=== PATIENT | male | born 2000 | race Caucasian/White ===

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

== ENCOUNTER → 2021-02-10 14:27 | Outpatient (BNVA) | payer MEDICAID, SELFPAY | PROVIDERS: Family Provider Family Medicine; PCP Family Medicine; Visit Provider Counselor Mental Health | DX: F43.12 Post-traumatic stress disorder, chronic (principal); F90.2 Attention-deficit hyperactivity disorder, combined type | CPT/HCPCS: 90834 ==

== ENCOUNTER → 2021-02-12 08:25 | Outpatient (BNVA) | payer MEDICAID, SELFPAY | PROVIDERS: Family Provider Family Medicine; PCP Family Medicine; Visit Provider Nurse Practitioner | DX: F43.12 Post-traumatic stress disorder, chronic (principal); R41.83 Borderline intellectual functioning; F90.2 Attention-deficit hyperactivity disorder, combined type | CPT/HCPCS: 99214 ==

== ENCOUNTER → 2021-02-24 14:43 | Outpatient (BNVA) | payer MEDICAID, SELFPAY | PROVIDERS: Family Provider Family Medicine; PCP Family Medicine; Visit Provider Counselor Mental Health | DX: F43.12 Post-traumatic stress disorder, chronic (principal); F90.2 Attention-deficit hyperactivity disorder, combined type; R41.83 Borderline intellectual functioning | CPT/HCPCS: 90834 ==

== ENCOUNTER → 2021-03-11 10:58 | Outpatient (BNVA) | payer MEDICAID, SELFPAY | PROVIDERS: Family Provider Family Medicine; PCP Family Medicine; Visit Provider Counselor Mental Health | DX: F43.12 Post-traumatic stress disorder, chronic (principal); F90.2 Attention-deficit hyperactivity disorder, combined type; R41.83 Borderline intellectual functioning | CPT/HCPCS: 90834 ==

== ENCOUNTER → 2021-03-25 10:53 | Outpatient (BNVA) | payer MEDICAID, SELFPAY | PROVIDERS: Family Provider Family Medicine; PCP Family Medicine; Visit Provider Counselor Mental Health | DX: F43.12 Post-traumatic stress disorder, chronic (principal); F90.2 Attention-deficit hyperactivity disorder, combined type; R41.83 Borderline intellectual functioning | CPT/HCPCS: 90834 ==

== ENCOUNTER → 2021-04-10 14:05 | Outpatient (BNVA) | payer MEDICAID, SELFPAY | PROVIDERS: Family Provider Family Medicine; PCP Family Medicine; Visit Provider Counselor Mental Health | DX: F43.12 Post-traumatic stress disorder, chronic (principal); F90.2 Attention-deficit hyperactivity disorder, combined type; R41.83 Borderline intellectual functioning | CPT/HCPCS: 90834 ==

== ENCOUNTER → 2021-04-25 10:45 | Outpatient (BNVA) | payer MEDICAID, SELFPAY | PROVIDERS: Family Provider Family Medicine; PCP Family Medicine; Visit Provider Counselor Mental Health | DX: F43.12 Post-traumatic stress disorder, chronic (principal); F90.2 Attention-deficit hyperactivity disorder, combined type; R41.83 Borderline intellectual functioning | CPT/HCPCS: 90834 ==

== ENCOUNTER → 2021-05-07 13:58 | Outpatient (BNVA) | payer MEDICAID, SELFPAY | PROVIDERS: Family Provider Family Medicine; PCP Family Medicine; Visit Provider Nurse Practitioner | DX: F43.12 Post-traumatic stress disorder, chronic (principal); R41.83 Borderline intellectual functioning; F90.2 Attention-deficit hyperactivity disorder, combined type | CPT/HCPCS: 99214 ==

== ENCOUNTER → 2021-05-09 10:46 | Outpatient (BNVA) | payer MEDICAID, SELFPAY | PROVIDERS: Family Provider Family Medicine; PCP Family Medicine; Visit Provider Counselor Mental Health | DX: F43.12 Post-traumatic stress disorder, chronic (principal); F90.2 Attention-deficit hyperactivity disorder, combined type; R41.83 Borderline intellectual functioning | CPT/HCPCS: 90834 ==

== ENCOUNTER → 2021-05-23 10:49 | Outpatient (BNVA) | payer OTHER, SELFPAY | PROVIDERS: Family Provider Family Medicine; PCP Family Medicine; Visit Provider Counselor Mental Health | DX: F43.12 Post-traumatic stress disorder, chronic (principal); F90.2 Attention-deficit hyperactivity disorder, combined type; R41.83 Borderline intellectual functioning | CPT/HCPCS: 90834 ==

== ENCOUNTER → 2021-06-06 10:43 | Outpatient (BNVA) | payer OTHER, SELFPAY | PROVIDERS: Family Provider Family Medicine; PCP Family Medicine; Visit Provider Counselor Mental Health | DX: F43.12 Post-traumatic stress disorder, chronic (principal); F90.2 Attention-deficit hyperactivity disorder, combined type; R41.83 Borderline intellectual functioning | CPT/HCPCS: 90834 ==

== ENCOUNTER → 2021-07-01 07:44 | Outpatient (BNVA) | payer OTHER, SELFPAY | PROVIDERS: Family Provider Family Medicine; PCP Family Medicine; Visit Provider Counselor Mental Health | DX: F43.12 Post-traumatic stress disorder, chronic (principal); F90.2 Attention-deficit hyperactivity disorder, combined type; R41.83 Borderline intellectual functioning | CPT/HCPCS: 90834 ==

== ENCOUNTER → 2021-07-02 07:28 | Outpatient (BNVA) | payer OTHER, SELFPAY | PROVIDERS: Family Provider Family Medicine; PCP Family Medicine; Visit Provider Nurse Practitioner | DX: F43.12 Post-traumatic stress disorder, chronic (principal); R41.83 Borderline intellectual functioning; F90.2 Attention-deficit hyperactivity disorder, combined type | CPT/HCPCS: 99214 ==

== ENCOUNTER → 2021-07-15 08:30 | Outpatient (BNVA) | payer OTHER, SELFPAY | PROVIDERS: Family Provider Family Medicine; PCP Family Medicine; Visit Provider Counselor Mental Health | DX: F43.12 Post-traumatic stress disorder, chronic (principal); F90.2 Attention-deficit hyperactivity disorder, combined type; R41.83 Borderline intellectual functioning | CPT/HCPCS: 90847 ==

== ENCOUNTER → 2021-07-29 14:46 | Outpatient (BNVA) | payer OTHER, SELFPAY | PROVIDERS: Family Provider Family Medicine; PCP Family Medicine; Visit Provider Counselor Mental Health | DX: F43.12 Post-traumatic stress disorder, chronic (principal); F90.2 Attention-deficit hyperactivity disorder, combined type; R41.83 Borderline intellectual functioning | CPT/HCPCS: 90834 ==

== ENCOUNTER → 2021-08-12 14:53 | Outpatient (BNVA) | payer OTHER, SELFPAY | PROVIDERS: Family Provider Family Medicine; PCP Family Medicine; Visit Provider Counselor Mental Health | DX: F43.12 Post-traumatic stress disorder, chronic (principal); F90.2 Attention-deficit hyperactivity disorder, combined type | CPT/HCPCS: 90832 ==

== ENCOUNTER → 2021-08-27 15:55 | Outpatient (BNVA) | payer OTHER, SELFPAY | PROVIDERS: Family Provider Family Medicine; PCP Family Medicine; Visit Provider Counselor Mental Health | DX: F43.12 Post-traumatic stress disorder, chronic (principal); F90.2 Attention-deficit hyperactivity disorder, combined type; R41.83 Borderline intellectual functioning | CPT/HCPCS: 90834 ==

== ENCOUNTER → 2021-09-15 10:46 | Outpatient (BNVA) | payer OTHER, SELFPAY | PROVIDERS: Family Provider Family Medicine; PCP Family Medicine; Visit Provider Counselor Mental Health | DX: F43.12 Post-traumatic stress disorder, chronic (principal); F90.2 Attention-deficit hyperactivity disorder, combined type; R41.83 Borderline intellectual functioning | CPT/HCPCS: 90834 ==

== ENCOUNTER → 2021-10-06 13:42 | Outpatient (BNVA) | payer OTHER, SELFPAY | PROVIDERS: Family Provider Family Medicine; PCP Family Medicine; Visit Provider Counselor Mental Health | DX: F43.12 Post-traumatic stress disorder, chronic (principal); F90.2 Attention-deficit hyperactivity disorder, combined type; R41.83 Borderline intellectual functioning | CPT/HCPCS: 90832 ==

== ENCOUNTER → 2021-12-01 07:56 | Outpatient (BNVA) | payer OTHER, SELFPAY | PROVIDERS: Family Provider Family Medicine; PCP Family Medicine; Visit Provider Counselor Mental Health | DX: F43.12 Post-traumatic stress disorder, chronic (principal); F90.2 Attention-deficit hyperactivity disorder, combined type; R41.83 Borderline intellectual functioning | CPT/HCPCS: 90847 ==

== ENCOUNTER → 2021-12-04 15:12 | Outpatient (BNVA) | payer OTHER, SELFPAY | PROVIDERS: Family Provider Family Medicine; PCP Family Medicine; Visit Provider Nurse Practitioner | DX: F90.2 Attention-deficit hyperactivity disorder, combined type (principal); F43.12 Post-traumatic stress disorder, chronic; R41.83 Borderline intellectual functioning | CPT/HCPCS: 99214 ==

== ENCOUNTER → 2021-12-16 08:48 | Outpatient (BNVA) | payer OTHER, SELFPAY | PROVIDERS: Family Provider Family Medicine; PCP Family Medicine; Visit Provider Counselor Mental Health | DX: F43.12 Post-traumatic stress disorder, chronic (principal); F90.2 Attention-deficit hyperactivity disorder, combined type; R41.83 Borderline intellectual functioning | CPT/HCPCS: 90834 ==

== ENCOUNTER → 2022-01-01 09:55 | Outpatient (BNVA) | payer OTHER, SELFPAY | PROVIDERS: Family Provider Family Medicine; PCP Family Medicine; Visit Provider Counselor Mental Health | DX: F43.12 Post-traumatic stress disorder, chronic (principal); F90.2 Attention-deficit hyperactivity disorder, combined type; R41.83 Borderline intellectual functioning | CPT/HCPCS: 90834 ==

== ENCOUNTER → 2022-01-22 13:43 | Outpatient (BNVA) | payer OTHER, SELFPAY | PROVIDERS: Family Provider Family Medicine; PCP Family Medicine; Visit Provider Counselor Mental Health | DX: F43.12 Post-traumatic stress disorder, chronic (principal); F90.2 Attention-deficit hyperactivity disorder, combined type; R41.83 Borderline intellectual functioning | CPT/HCPCS: 90834 ==

== ENCOUNTER → 2022-02-03 13:44 | Outpatient (BNVA) | payer OTHER, SELFPAY | PROVIDERS: Family Provider Family Medicine; PCP Family Medicine; Visit Provider Counselor Mental Health | DX: F43.12 Post-traumatic stress disorder, chronic (principal); F90.2 Attention-deficit hyperactivity disorder, combined type; R41.83 Borderline intellectual functioning | CPT/HCPCS: 90847; 90834 ==

== ENCOUNTER → 2022-02-19 10:52 | Outpatient (BNVA) | payer OTHER, SELFPAY | PROVIDERS: Family Provider Family Medicine; PCP Family Medicine; Visit Provider Counselor Mental Health | DX: F43.12 Post-traumatic stress disorder, chronic (principal); F90.2 Attention-deficit hyperactivity disorder, combined type; R41.83 Borderline intellectual functioning | CPT/HCPCS: 90834 ==

== ENCOUNTER → 2022-03-02 15:06 | Outpatient (BNVA) | payer OTHER, SELFPAY | PROVIDERS: Family Provider Family Medicine; PCP Family Medicine; Visit Provider Nurse Practitioner | DX: F90.2 Attention-deficit hyperactivity disorder, combined type (principal); F43.12 Post-traumatic stress disorder, chronic; R41.83 Borderline intellectual functioning | CPT/HCPCS: 99214 ==

== ENCOUNTER → 2022-03-06 08:41 | Outpatient (BNVA) | payer OTHER, SELFPAY | PROVIDERS: Family Provider Family Medicine; PCP Family Medicine; Visit Provider Counselor Mental Health | DX: F43.12 Post-traumatic stress disorder, chronic (principal); F90.2 Attention-deficit hyperactivity disorder, combined type; R41.83 Borderline intellectual functioning | CPT/HCPCS: 90834 ==

== ENCOUNTER → 2022-03-20 09:53 | Outpatient (BNVA) | payer OTHER, SELFPAY | PROVIDERS: Family Provider Family Medicine; PCP Family Medicine; Visit Provider Counselor Mental Health | DX: F43.12 Post-traumatic stress disorder, chronic (principal); F90.2 Attention-deficit hyperactivity disorder, combined type; R41.83 Borderline intellectual functioning | CPT/HCPCS: 90834 ==

== ENCOUNTER → 2022-04-10 12:40 | Outpatient (BNVA) | payer OTHER, SELFPAY | PROVIDERS: Family Provider Family Medicine; PCP Family Medicine; Visit Provider Counselor Mental Health | DX: F43.12 Post-traumatic stress disorder, chronic (principal); F90.2 Attention-deficit hyperactivity disorder, combined type; R41.83 Borderline intellectual functioning | CPT/HCPCS: 90847; 90834 ==

== ENCOUNTER → 2022-04-27 12:39 | Outpatient (BNVA) | payer OTHER, SELFPAY | PROVIDERS: Family Provider Family Medicine; PCP Family Medicine; Visit Provider Counselor Mental Health | DX: F43.12 Post-traumatic stress disorder, chronic (principal); F90.2 Attention-deficit hyperactivity disorder, combined type; R41.83 Borderline intellectual functioning | CPT/HCPCS: 90834 ==

== ENCOUNTER → 2022-05-11 12:56 | Outpatient (BNVA) | payer OTHER, SELFPAY | PROVIDERS: Family Provider Family Medicine; PCP Family Medicine; Visit Provider Counselor Mental Health | DX: F43.12 Post-traumatic stress disorder, chronic (principal); F90.2 Attention-deficit hyperactivity disorder, combined type; R41.83 Borderline intellectual functioning | CPT/HCPCS: 90847; 90834 ==

== ENCOUNTER → 2022-08-05 12:19 | Outpatient (BNVA) | payer OTHER, SELFPAY | PROVIDERS: Family Provider Family Medicine; PCP Family Medicine; Visit Provider Psychiatry & Neurology Neurology | DX: Z01.89 Encounter for other specified special examinations (principal) | CPT/HCPCS: 80061; 83036 ==

== ENCOUNTER 2024-03-07 20:00 | Outpatient (CLI) | payer MEDICAID, SELFPAY ==
[2022-08-10 16:00] VITALS: BP 132/77; BMI 39.6
== END 2024-03-07 20:01 | disposition home or self-care (01) ==
PROVIDERS: Family Provider Family Medicine; PCP Family Medicine; Visit Provider Nurse Practitioner Psychiatric/Mental Health
DX: G47.33 Obstructive sleep apnea (adult) (pediatric) (principal)
CPT/HCPCS: 95810

== ENCOUNTER 2024-07-25 20:00 | Outpatient (CLI) | payer MEDICAID, SELFPAY ==
[2022-08-10 16:00] VITALS: BP 132/77; BMI 39.6
== END 2024-07-25 20:01 | disposition home or self-care (01) ==
LOC: SLEEP 07-26 01:21
PROVIDERS: Family Provider Family Medicine; PCP Family Medicine; Visit Provider Nurse Practitioner Psychiatric/Mental Health
DX: G47.33 Obstructive sleep apnea (adult) (pediatric) (principal)
CPT/HCPCS: 95811

== ENCOUNTER → 2024-09-21 09:56 | Outpatient (BNVA) | payer OTHER, SELFPAY ==
[2022-08-10 16:00] VITALS: BP 132/77; BMI 39.6
== END ==
PROVIDERS: Family Provider Family Medicine; PCP Family Medicine; Referring Provider Psychiatry & Neurology Psychiatry; Visit Provider Psychiatry & Neurology Psychiatry
DX: Z79.899 Other long term (current) drug therapy (principal)
CPT/HCPCS: 80061; 83036

== ENCOUNTER → 2025-09-27 11:42 | Outpatient (BNVA) | payer OTHER, SELFPAY ==
[2024-09-26 15:14] VITALS: BP 132/77; BMI 41.9
== END ==
PROVIDERS: Visit Provider Nurse Practitioner Psychiatric/Mental Health
DX: F90.2 Attention-deficit hyperactivity disorder, combined type (principal); F33.2 Major depressive disorder, recurrent severe without psychotic features; F43.12 Post-traumatic stress disorder, chronic
CPT/HCPCS: 80061; 83036